=== PATIENT | male | born 1940 | race Caucasian/White ===

== ENCOUNTER 2020-09-06 17:49 | Emergency (ER) | payer OTHER, MEDICARE, SELFPAY ==
--- NOTE | ~2020-09-06 | XR_ITS ---
EXAMINATION: XR CHEST CLINICAL INFORMATION: Shortness of breath COMPARISON: None TECHNIQUE: Upright frontal portable view of the chest was obtained. FINDINGS: There is calcification of the aortic arch. The cardiac size is within normal limits. There is no mediastinal or hilar mass. The vasculature is normal. Lung volumes are low normal. There is no consolidation or major zone of atelectasis. The visualized pleural margins are within normal limits. There are some osteophytes in the spine. Chronic appearing widening of the right AC joint. Correlate with any previous surgery. XR/XR chest 1V IMPRESSION: No pneumonia or edema.
[2020-09-06 17:53] VITALS: BP 161/77; PULSE 76; RESP 18; TEMP 36.4; O2SAT 95; BMI 39.1
--- NOTE | 2020-09-06 18:41 | ED_ITS ---
HPI - Extremity Problem General Chief complaint: Eye Problems Stated complaint: hip pain Time Seen by Provider: 09/06/20 18:34 Source: patient Mode of arrival: ambulatory Limitations: no limitations History of Present Illness HPI Narrative: patient is status post thrombectomy right leg 2 month ago was doing fine no significant claudication complaining of pain in the right lower back radiating down the right leg with history of chronic low back pain problems no change in color of the right lower extremities no cyanosis no open wound patient able to ambulate well [place] patient also does have a sleep apnea and us ing CPAP in the night complaining of shortness of breath which is going on for a long time. Patient had full workup done a month ago in [place] where he lives and all the labs were within normal limits according to him. Related Data Previous Rx's Medication Instructions Recorded cyclobenzaprine 10 mg PO Q8H #20 tab 09/06/20 oxycodone 5 mg PO Q6H PRN #20 tab 09/06/20 Allergies Allergy/AdvReac Type Severity Reaction Status Date / [facility] Unknown RED Uncoded 09/06/20 17:52 Review of Systems Review of Systems: Yes all other systems are reviewed and are negative [facility] Past Medical History Medical History (Updated 09/06/20 @ 19:56 by Fermin Marie MD) Chronic back pain Coronary artery disease Diabetes mellitus Diverticulitis Hypertension Peripheral vascular disease Sleep apnea Social History Social History Advance Directives: No Advance Directives Information Provided: Yes Physical Exam Vital Signs: Vital Signs: Last Vital Signs Temp 97.6 F 09/06/20 17:53 Pulse 77 09/06/20 19:07 Resp 16 09/06/20 19:07 BP 144/59 H 09/06/20 19:07 Pulse Ox 95 09/06/20 19:07 Body Mass Index 39.1 Const: General: no acute distress and well developed Orientation/consciousness: patient oriented x3 HENMT: Head: Yes normal to inspection Eyes: General: appearance normal, both eyes and all related structures Neck: Neck: Yes normal visual inspection and Yes full ROM Chest: Chest palpation & inspection: normal inspection of the chest Resp: Effort & Inspection: normal respiratory effort and able to speak in complete sentences Auscultation: clear to auscultation bilaterally, no crackles and no rales Cardio: Palpation: normal PMI Rate: regular rate Rhythm: regular rhythm Heart sounds: S1 normal heart sound present and S2 normal heart sound present Peripheral pulses: Peripheral pulses 2+ throughout GI: Inspection: Yes normal to inspection Palpation (GI): Soft to palpation : General: Yes Bimanual renal exam normal bilaterally and Yes no CVA tenderness Back/Spine/Pelvis: Back: no CVA tenderness Thoracic/Lumbar Spine: thoracic and lumbar spine normal to inspection, straight leg raise negative bilaterally, pain with thoraco-lumbar ROM, paraspinal muscle tenderness, No thoracic spinal tenderness and No lumbar spinal tenderness Neuro: General: patient oriented x3 and Normal light touch and pain sensation Gait exam (Neuro): Antalgic gait present Extrem: Other: good peripheral pulses in right leg General: Yes normal to inspection, Yes full ROM and Yes capillary refill normal Right lower extremity: normal to inspection, full ROM and normal capillary refill Discharge Plan Discharge Clinical Impression: Low back pain radiating down leg Patient Disposition: Home, Self-Care Instructions: Back Pain (ED) Additional Instructions: rest at home take pain medication and muscle relaxant as prescribed report to the ER if lower extremity turns blue or cold Prescriptions: New cyclobenzaprine 10 mg tablet 10 mg PO Q8H Qty: 20 RF: 0 oxycodone 5 mg tablet 5 mg PO Q6H PRN (Reason: Pain, Severe) Qty: 20 RF: 0 Interventions: ED Discharge Assessment Last Done: 09/06/20 20:18 Discharge Date/Time: 09/06/20 20:18
[2020-09-06 19:07] VITALS: BP 144/59; PULSE 77; RESP 16; O2SAT 95
--- NOTE | 2020-09-06 19:11 | PC.NURSE ---
pt states he not here for any eye problem. pt is here for right upper leg pain. with a hx of blood clots.
[2020-09-06] MEDS: Cyclobenzaprine HCl 10 MG TABLET PO (19:15)
[2020-09-06] MEDS: oxyCODONE HCl Immed Release 5 MG TABLET 10 MG PO (19:16)
== END 2020-09-06 20:18 | disposition home or self-care (01) ==
PROVIDERS: Emergency Provider Internal Medicine
DX: M54.5 Low back pain (principal); I10 Essential (primary) hypertension; I25.10 Atherosclerotic heart disease of native coronary artery without angina pectoris; E11.9 Type 2 diabetes mellitus without complications
CPT/HCPCS: 71045; 99283; 99284

== ENCOUNTER 2021-08-27 08:29 | Emergency (ER) | payer MEDICARE, SELFPAY ==
--- NOTE | ~2021-08-27 | NM_ITS ---
EXAMINATION: PULMONARY PERFUSION STUDY CLINICAL INFORMATION: Shortness of breath. COMPARISON: No previous lung scan is available for comparison. Radiographs of the chest dated 08/27/2021, the same date as this lung scan, are available for comparison. TECHNIQUE: Following the intravenous administration of 4.0 mCi Tc-99m MAA an 8-view perfusion study was performed using a dual detector gamma scintillation camera. No ventilation images were obtained. FINDINGS: Perfusion images: No segmental perfusion defects are present. Nonsegmental perfusion abnormalities are present in the right lower lobe, and there is some elevation of the right hemidiaphragm compared to the left. No significant perfusion abnormalities are present in the left lung. NM/NM pul perfusion IMPRESSION: Low probability of pulmonary embolism. Nonsegmental perfusion abnormalities are present in the right lower lobe, and this scan appearance in the setting of a high clinical suspicion carries a 15-20% probability of pulmonary embolism.
--- NOTE | ~2021-08-27 | XR_ITS ---
EXAMINATION: XR CHEST CLINICAL INFORMATION: Shortness of breath COMPARISON: Chest radiograph 09/06/2020 TECHNIQUE: 2 views of the chest were obtained. FINDINGS: No significant abnormality is noted involving the heart, lungs, mediastinum, bony thorax or soft tissues. Again noted is probable surgical resection of the distal right clavicle. XR/XR chest 2V IMPRESSION: No acute intrathoracic disease
--- NOTE | ~2021-08-27 | US_ITS ---
EXAMINATION: US VENOUS ULTRASOUND WITH DOPPLER LOWER EXTREMITY, BILATERAL CLINICAL INFORMATION: Bilateral lower extremity edema COMPARISON: None TECHNIQUE: Ultrasound of the deep veins is performed from the hip to the calf with compression sonography and color and pulse Doppler assessment. Spectral analysis with color-flow imaging is performed. FINDINGS: RIGHT: There is normal venous compression and respiratory variation and augmented flow. The visualized common femoral vein, superficial femoral vein, profunda femoral vein, popliteal vein, and the trifurcation region shows no evidence of deep venous thrombosis. Secondary to the edema, the peroneal veins are not well seen There is no significant popliteal fossa cyst. Calf edema is present LEFT: There is normal venous compression and respiratory variation and augmented flow. The visualized common femoral vein, superficial femoral vein, profunda femoral vein, popliteal vein, and the trifurcation region shows no evidence of deep venous thrombosis. Secondary to the edema, the peroneal veins are not well seen. There is no significant popliteal fossa cyst. Calf edema is present. If the patient's symptoms persist, followup ultrasound in 5 days 7 days might be of value to exclude proximal propagation from a non-visualized calf vein. US/US venous duplex LE BI IMPRESSION: No DVT demonstrated in either lower extremity.
[2021-08-27 08:43] VITALS: BP 157/69; PULSE 70; RESP 20; TEMP 36.9; O2SAT 97; BMI 40.8
--- NOTE | 2021-08-27 08:48 | ECG_ITS ---
Test Reason : edema Blood Pressure : / mmHG Vent. Rate : 068 BPM Atrial Rate : 068 BPM P-R Int : 218 ms QRS Dur : 098 ms QT Int : 402 ms P-R-T Axes : 046 052 052 degrees QTc Int : 427 ms Sinus rhythm with sinus arrhythmia with 1st degree A-V block Otherwise normal ECG When compared with ECG of 19-AUG-2016 19:51, Premature supraventricular complexes are no longer Present Referred By: Chayito Pringle Electronically Signed By:TIM IYER MD
--- NOTE | 2021-08-27 08:48 | ED.GENADULT ---
HPI - General Adult General Chief complaint: Extremity Problem Stated complaint: swollen legs , fell on knees Time Seen by Provider: 08/27/21 08:48 Source: patient Mode of arrival: ambulatory Limitations: no limitations History of Present Illness HPI narrative: Patient is a 80 year old male presenting to the emergency department today with lower leg swelling. Patient states that he tripped up some stairs a week ago and ever since he has had bilateral lower leg swelling and intermittent SOB. Patient states that he lives in [place] [employer] and is only here to visit his children. Patient denies any dizziness, lightheadedness, abdominal pain, nausea, vomiting, fever, chills, blurry vision, double vision, loss of vision, chest pain, back pain, night sweats, pain with urination, increased urinary frequency, increased urinary urgency, blood in his urine or stool, syncope or a near syncopal episode, recent trauma or falls, bowel incontinence, bladder incontinence, bowel retention, bladder retention, or any other complaints at this time. Onset (ago): week(s) Location: left, right and lower extremity Radiation: non-radiation Severity: mild Severity scale (1-10): 3 Relieving factors: none Exacerbating factors: none Associated symptoms: shortness of breath (intermittent) Treatments prior to arrival: none Related Data Previous Rx's Medication Instructions Recorded cyclobenzaprine 10 mg tablet 10 mg PO Q8H #20 tabs 09/06/20 oxycodone 5 mg tablet 5 mg PO Q6H PRN Pain, Severe #20 09/06/20 tabs rafa.stocking,thigh,reg,med #2 ea 08/27/21 Allergies Allergy/AdvReac Type Severity Reaction Status Date / Time From [facility] Allergy Unknown RED Uncoded 09/06/20 17:52 Review of Systems Constitutional: Constitutional: Reports no additional constitutional complaints, Denies chills, Denies fever(s) and Denies night sweats Eyes: Eyes: Reports no additional eye complaints, Denies blurry vision, Denies change in vision, Denies diplopia, Denies eye discharge, Denies loss of vision and Denies eye pain ENT: Denies dizziness Cardiovascular: Cardiovascular: Reports no additional cardiovascular complaints, Denies chest pain, Reports leg edema, Denies lightheadedness, Denies Loss of Consciousness and Reports dyspnea (intermittent) Respiratory: Respiratory: Reports no additional respiratory complaints and Reports dyspnea (intermittent) Gastrointestinal: Gastrointestinal: Reports no additional gastrointestinal complaints, Denies abdominal pain, Denies melena, Denies hematochezia, Denies change in bowel habits and Denies change in stool character Genitourinary: Genitourinary: Reports no additional male genitourinary complaints, Denies hematuria, Denies oliguria, Denies difficulty urinating, Denies dysuria, Denies urinary frequency, Denies urinary hesitancy, Denies urinary incontinence and Denies urinary urgency Musculoskeletal: Musculoskeletal: Reports no additional musculoskeletal complaints, Denies numbness and Denies tingling Neurologic: Denies dizziness, Denies loss of vision, Denies numbness and Denies tingling Psychiatric: Psychiatric: Reports no additional psychiatric complaints Endocrine: Endocrine: Reports no additional endocrine complaints Hematologic/Lymphatic: Hematologic/Lymphatic: Reports no additional hematologic/lymphatic complaints Allergic/Immunologic: Allergic/Immunologic: Reports no additional allergic/immunologic complaints PMFSH Past Medical History Attestation statement: The following information was validated with the patient. Source: old records reviewed Medical History Chronic back pain Coronary artery disease Diabetes mellitus Diverticulitis Hypertension Peripheral vascular disease Sleep apnea Social History Social History Patient Tobacco Use Status: Former Tobacco user Smoked in Last 30 Days: No Use of substances other than those prescribed or required for medical reasons: No Advance Directives: No Advance Directives Information Provided: Yes Physical Exam ED Vital Signs: Vital Signs - 24 hr 08/27/21 08:43 08/27/21 11:18 Temperature 98.4 F 97.7 F Pulse Rate 70 66 Respiratory Rate 20 18 Blood Pressure 157/69 H 122/46 L Pulse Oximetry 97 96 Oxygen Delivery Method Room Air Room Air BMI result Body Mass Index 40.8 Const General: cooperative, no acute distress, alert and awake Nutritional Appearance: well nourished Orientation/consciousness: patient oriented x3 Limitations: no limitations HENMT Head: Yes normal to inspection and Yes atraumatic Ears: hearing grossly normal bilaterally and external ears normal General nose exam: Normal external nose present, no nasal discharge noted and no epistaxis Face and sinus: Yes normal facial exam, No abrasion and No laceration Mouth: Normal oral and palatal mucosa present, no drooling and no muffled voice Eyes General: appearance normal, both eyes and all related structures Periorbital: periorbital findings normal Eyelids: Yes eyelids normal Conjunctivae: conjunctivae normal Pupils: Equal, round and reactive pupils present EOM: EOMs intact bilaterally Neck Neck: Yes normal visual inspection, Yes full ROM and Yes no lymphadenopathy Chest Chest palpation & inspection: normal inspection of the chest Resp Effort & Inspection: normal respiratory effort and able to speak in complete sentences Auscultation: clear to auscultation bilaterally Cardio Rate: regular rate Rhythm: regular rhythm GI Inspection: Yes normal to inspection Neuro General: patient oriented x3 and moves all extremities Cranial nerves: Yes Equal, round and reactive pupils present Cognition (Neuro): normal cognition Motor exam (neuro): 5/5 motor strength present throughout Sensory Exam: Normal double simultaneous stimulation for sensation Coordination: [id number] test normal Extrem General: Yes normal to inspection, Yes full ROM and Yes capillary refill normal Right lower extremity: edema Left lower extremity: edema Psych Appearance: grossly normal Mental Status: mental status grossly normal Affect: normal affect Attitude: cooperative Thought process: Normal thought process present Thought content: Normal thought content present Insight: Good insight present (Psych) Medical Decision Making MDM Narrative Medical decision making narrative: Patient is a 80 year old male presenting to the emergency department today with bilateral lower leg edema. Patient's physical exam showed bilateral lower leg 2+ edema but was otherwise unremarkable. Patient's blood work showed an elevated d dimer and a low magnesium. Patient's mag was replaced via 2g of IV mag. Patient's EKG was unremarkable. Patient's chest x-ray showed no acute process. Patient's VQ scan and bilateral lower leg US showed no acute process. I explained my physical exam findings as well as all test results to the patient and the patient's . I answered all questions asked by the patient and the patient's . I stressed the importance of the patient taking his medication as prescribed. I stressed the importance of the patient following up with his primary care provider. I stressed the importance of the patient returning to the emergency department immediately if his symptoms were to worsen or if he were to develop any dizziness, shortness of breath, difficulty breathing, chest pain, blurry vision, loss of vision, nausea, vomiting, abdominal pain, fever, chills, back pain, or any other complaints. Patient and the patient's verbalized agreement and understanding with this treatment plan and discharge. Differential Diagnosis Differential Diagnosis: Dependent edema, hypomagnesemia Medical Records Medical records reviewed: Yes I reviewed the patient's medical records. Lab Data Lab results reviewed: Yes I reviewed the patient's lab results. Result diagrams: 08/27/21 09:20 08/27/21 09:20 Labs: Lab Results 08/27/21 08/27/21 08/27/21 Range/Units 09:12 09:12 09:20 WBC 6.9 (4.8-10.8) X10*3/uL RBC 4.07 L (4.60-5.80) X10*6/uL Hgb 12.5 L (14.0-18.0) g/dl Hct 38.4 L (42.0-52.0) % MCV 94.3 (80.0-98.0) fL MCH 30.7 (27.0-33.0) pg MCHC 32.6 (31.0-36.0) g/dl RDW 12.6 (11.0-16.0) % Plt Count 245 (160-400) X10*3/uL MPV 9.7 (9.4-12.4) fL Immature Gran % (Auto) 1.2 H (0.0-0.4) % Neut % (Auto) 63.7 (45-73) % Lymph % (Auto) 23.0 (20-40) % [place] % (Auto) 9.5 (2-11) % Eos % (Auto) 1.9 (0-4) % Baso % (Auto) 0.7 (0-2) % Lymph # (Auto) 1.6 (1.2-4.9) X10*3/uL [place] # (Auto) 0.7 (0.1-1.2) X10*3/uL Eos # (Auto) 0.1 (0.0-0.4) X10*3/uL Baso # (Auto) 0.1 (0.0-0.2) X10*3/uL Abs Immat Gran (auto) 0.08 H (0.00-0.03) X10*3/uL Absolute Neuts (auto) 4.4 (2.0-8.3) x10*3/uL Absolute Nucleated RBC 0.020 H (0.0-0.012) X10*3/uL Nucleated RBC % (auto) 0.3 H (0.0-0.2) /100WBC D-Dimer High Sensitivty NG/ML VBG pH (7.32-7.43) VBG pCO2 mmHg VBG pO2 mmHg VBG HCO3 (22-26) mmol/L VBG O2 Saturation % VBG Base Excess mmol/L Sodium (135-145) mmol/L Potassium (3.3-5.1) mmol/L Chloride (96-108) mmol/L Carbon Dioxide (22-29) mmol/L Anion Gap (12-20) BUN (9-16) mg/dL Creatinine (0.5-1.4) mg/dL Estim Creat Clear Calc Estimated GFR Random Glucose (60-115) mg/dL Lactic Acid (0.5-2.0) mmol/L Lactic Acid F/U @ 2Hr (0.5-2.0) mmol/L Calcium (8.4-10.2) mg/dL Magnesium (1.6-2.6) mg/dL Total Bilirubin (0.0-1.0) mg/dL AST (5-37) U/L ALT (0-40) U/L Alkaline Phosphatase (39-117) U/L Troponin I High Sens (<3.5-35.0) ng/L B-Natriuretic Peptide (<100) pg/mL Total Protein (6.5-8.0) g/dL Albumin (3.5-5.0) g/dL COVID-19 (TABITHA) Negative (Negative) COVID-19 Clin Com See Note Influenza Type A (NELY) Negative (Negative) Influenza Type B (NELY) Negative (Negative) Influenza A & B Note See Note 08/27/21 08/27/21 08/27/21 Range/Units 09:20 09:20 09:20 WBC (4.8-10.8) X10*3/uL RBC (4.60-5.80) X10*6/uL Hgb (14.0-18.0) g/dl Hct (42.0-52.0) % MCV (80.0-98.0) fL MCH (27.0-33.0) pg MCHC (31.0-36.0) g/dl RDW (11.0-16.0) % Plt Count (160-400) X10*3/uL MPV (9.4-12.4) fL Immature Gran % (Auto) (0.0-0.4) % Neut % (Auto) (45-73) % Lymph % (Auto) (20-40) % [place] % (Auto) (2-11) % Eos % (Auto) (0-4) % Baso % (Auto) (0-2) % Lymph # (Auto) (1.2-4.9) X10*3/uL [place] # (Auto) (0.1-1.2) X10*3/uL Eos # (Auto) (0.0-0.4) X10*3/uL Baso # (Auto) (0.0-0.2) X10*3/uL Abs Immat Gran (auto) (0.00-0.03) X10*3/uL Absolute Neuts (auto) (2.0-8.3) x10*3/uL Absolute Nucleated RBC (0.0-0.012) X10*3/uL Nucleated RBC % (auto) (0.0-0.2) /100WBC D-Dimer High Sensitivty 1549 NG/ML VBG pH (7.32-7.43) VBG pCO2 mmHg VBG pO2 mmHg VBG HCO3 (22-26) mmol/L VBG O2 Saturation % VBG Base Excess mmol/L Sodium 138 (135-145) mmol/L Potassium 4.2 (3.3-5.1) mmol/L Chloride 102 (96-108) mmol/L Carbon Dioxide 26 (22-29) mmol/L Anion Gap 14 (12-20) BUN 22 H (9-16) mg/dL Creatinine 1.31 (0.5-1.4) mg/dL Estim Creat Clear Calc 55.3 Estimated GFR 53 Random Glucose 209 H (60-115) mg/dL Lactic Acid (0.5-2.0) mmol/L Lactic Acid F/U @ 2Hr (0.5-2.0) mmol/L Calcium 9.0 (8.4-10.2) mg/dL Magnesium 1.3 L* (1.6-2.6) mg/dL Total Bilirubin 0.4 (0.0-1.0) mg/dL AST 15 (5-37) U/L ALT 18 (0-40) U/L Alkaline Phosphatase 33 L (39-117) U/L Troponin I High Sens 7.4 (<3.5-35.0) ng/L B-Natriuretic Peptide 12 (<100) pg/mL Total Protein 6.3 L (6.5-8.0) g/dL Albumin 3.6 (3.5-5.0) g/dL COVID-19 (TABITHA) (Negative) COVID-19 Clin Com Influenza Type A (NELY) (Negative) Influenza Type B (NELY) (Negative) Influenza A & B Note 08/27/21 08/27/21 08/27/21 Range/Units 09:20 09:25 11:54 WBC (4.8-10.8) X10*3/uL RBC (4.60-5.80) X10*6/uL Hgb (14.0-18.0) g/dl Hct (42.0-52.0) % MCV (80.0-98.0) fL MCH (27.0-33.0) pg MCHC (31.0-36.0) g/dl RDW (11.0-16.0) % Plt Count (160-400) X10*3/uL MPV (9.4-12.4) fL Immature Gran % (Auto) (0.0-0.4) % Neut % (Auto) (45-73) % Lymph % (Auto) (20-40) % [place] % (Auto) (2-11) % Eos % (Auto) (0-4) % Baso % (Auto) (0-2) % Lymph # (Auto) (1.2-4.9) X10*3/uL [place] # (Auto) (0.1-1.2) X10*3/uL Eos # (Auto) (0.0-0.4) X10*3/uL Baso # (Auto) (0.0-0.2) X10*3/uL Abs Immat Gran (auto) (0.00-0.03) X10*3/uL Absolute Neuts (auto) (2.0-8.3) x10*3/uL Absolute Nucleated RBC (0.0-0.012) X10*3/uL Nucleated RBC % (auto) (0.0-0.2) /100WBC D-Dimer High Sensitivty NG/ML VBG pH 7.47 H (7.32-7.43) VBG pCO2 34 mmHg VBG pO2 70 mmHg VBG HCO3 25 (22-26) mmol/L VBG O2 Saturation 93.0 % VBG Base Excess 2.2 mmol/L Sodium (135-145) mmol/L Potassium (3.3-5.1) mmol/L Chloride (96-108) mmol/L Carbon Dioxide (22-29) mmol/L Anion Gap (12-20) BUN (9-16) mg/dL Creatinine (0.5-1.4) mg/dL Estim Creat Clear Calc Estimated GFR Random Glucose (60-115) mg/dL Lactic Acid 2.1 H* (0.5-2.0) mmol/L Lactic Acid F/U @ 2Hr 1.8 (0.5-2.0) mmol/L Calcium (8.4-10.2) mg/dL Magnesium (1.6-2.6) mg/dL Total Bilirubin (0.0-1.0) mg/dL AST (5-37) U/L ALT (0-40) U/L Alkaline Phosphatase (39-117) U/L Troponin I High Sens (<3.5-35.0) ng/L B-Natriuretic Peptide (<100) pg/mL Total Protein (6.5-8.0) g/dL Albumin (3.5-5.0) g/dL COVID-19 (TABITHA) (Negative) COVID-19 Clin Com Influenza Type A (NELY) (Negative) Influenza Type B (NELY) (Negative) Influenza A & B Note Imaging Data Chest x-ray: Attestation: I personally reviewed and interpreted this imaging study as follows: My impression: No acute process. Radiologist's impression: EXAMINATION: XR CHEST CLINICAL INFORMATION: Shortness of breath COMPARISON: Chest radiograph 09/06/2020 TECHNIQUE: 2 views of the chest were obtained. FINDINGS: No significant abnormality is noted involving the heart, lungs, mediastinum, bony thorax or soft tissues. Again noted is probable surgical resection of the distal right clavicle. XR/XR chest 2V IMPRESSION: No acute intrathoracic disease Dictated By: Dominik Grimes MD Signed By: Electronically signed by Dominik Grimes MD 08/27/21 1020 Pulmonary Perfusion Imaging: Attestation: I personally reviewed and interpreted this imaging study as follows: My impression: No PE. Radiologist's impression: EXAMINATION: PULMONARY PERFUSION STUDY CLINICAL INFORMATION: Shortness of breath. COMPARISON: No previous lung scan is available for comparison. Radiographs of the chest dated 08/27/2021, the same date as this lung scan, are available for comparison. TECHNIQUE: Following the intravenous administration of 4.0 mCi Tc-99m MAA an 8-view perfusion study was performed using a dual detector gamma scintillation camera. No ventilation images were obtained. FINDINGS: Perfusion images: No segmental perfusion defects are present. Nonsegmental perfusion abnormalities are present in the right lower lobe, and there is some elevation of the right hemidiaphragm compared to the left. No significant perfusion abnormalities are present in the left lung. NM/NM pul perfusion IMPRESSION: Low probability of pulmonary embolism. Nonsegmental perfusion abnormalities are present in the right lower lobe, and this scan appearance in the setting of a high clinical suspicion carries a 15-20% probability of pulmonary embolism. Dictated By: Yung Garner MD Signed By: Electronically signed by Yung Garner MD 08/27/21 1322 Venous US: Attestation: I personally reviewed and interpreted this imaging study as follows: My impression: No DVT. Radiologist's impression: EXAMINATION:? US VENOUS ULTRASOUND WITH DOPPLER LOWER EXTREMITY, BILATERAL CLINICAL INFORMATION:? Bilateral lower extremity edema COMPARISON:? None TECHNIQUE: Ultrasound of the deep veins is performed from the hip to the calf with compression sonography and color and pulse Doppler assessment. Spectral analysis with color-flow imaging is performed. FINDINGS: RIGHT: There is normal venous compression and respiratory variation and augmented flow. The visualized common femoral vein, superficial femoral vein, profunda femoral vein, popliteal vein, and the trifurcation region shows no evidence of deep venous thrombosis. Secondary to the edema, the peroneal veins are not well seen There is no significant popliteal fossa cyst. Calf edema is present LEFT: There is normal venous compression and respiratory variation and augmented flow. The visualized common femoral vein, superficial femoral vein, profunda femoral vein, popliteal vein, and the trifurcation region shows no evidence of deep venous thrombosis. Secondary to the edema, the peroneal veins are not well seen. There is no significant popliteal fossa cyst. Calf edema is present. If the patient's symptoms persist, followup ultrasound in 5 days 7 days might be of value to exclude proximal propagation from a non-visualized calf vein. US/US venous duplex LE BI IMPRESSION: No DVT demonstrated in either lower extremity. Dictated By: Dominik Grimes MD Signed By: Electronically signed by Dominik Grimes MD 08/27/21 1137 ECG Data Attestation: I personally reviewed and interpreted this ECG as follows: Prior ECG tracings: available for review Interpretation: Vent. Rate: 068 BPM ? ? Atrial Rate: 068 BPM P-R Int: 218 ms? QRS Dur: 098 ms QT Int: 402 ms ? ? ? P-R-T Axes: 046 052 052 degrees QTc Int: 427 ms ? Sinus rhythm with sinus arrhythmia with 1st degree A-V block Otherwise normal ECG When compared with ECG of 19-AUG-2016 19:51, Premature supraventricular complexes are no longer Present ? Referred By: Chayito Pringle ? Electronically Signed By:KARL IYER MD Dictated By: Karl Iyer MD Signed By: Electronically signed by Karl Iyer MD 08/27/21 1527 Discharge Plan Discharge Clinical Impression: Lower extremity edema, Hypomagnesemia Patient Disposition: Home, Self-Care Instructions: Leg Edema (ED), Hypomagnesemia (ED) Additional Instructions: Begin taking a total of 800mg of Magnesium, over the counter, per day. Use the compression stockings daily. Replace the compression stockings after 6 months of continual use. Follow up with your primary care provider. Return to the emergency department immediately if your symptoms worsen or if you develop any dizziness, shortness of breath, difficulty breathing, chest pain, blurry vision, loss of vision, nausea, vomiting, abdominal pain, fever, chills, back pain, or any other complaints. Prescriptions: New (DME) rafa.stocking,thigh,reg,med Misc See Rx Instructions .Route Qty: 2 0RF Rx Instructions: As directed No Action cyclobenzaprine 10 mg tablet 10 mg PO Q8H Qty: 20 0RF oxycodone 5 mg tablet 5 mg PO Q6H PRN (Reason: Pain, Severe) Qty: 20 0RF Referrals: Physician,Nonstaff [Primary Care Provider] - (Follow up with your primary care provider once you return to [place]. ) Interventions: ED Discharge Assessment Last Done: 08/27/21 14:00 Discharge Date/Time: 08/27/21 14:00 Print Language: [place]
[2021-08-27 09:25] LABS: MANUAL DIFF FLAG NO
[2021-08-27 09:27] LABS: Venous Blood Gas Refer to POC result
[2021-08-27 09:30] LABS: Basophils Absolute Auto 0.1 X10*3/uL (0.0-0.2); Basophils Percent Auto 0.7 % (0-2); Eosinophils Absolute Auto 0.1 X10*3/uL (0.0-0.4); Eosinophils Percent Auto 1.9 % (0-4); Hematocrit 38.4 % (42.0-52.0); Hemoglobin 12.5 g/dl (14.0-18.0); Imm Gran Abs Auto 0.08 X10*3/uL (0.00-0.03); Imm Gran Pct Auto 1.2 % (0.0-0.4); Lymphocytes Absolute Auto 1.6 X10*3/uL (1.2-4.9); Mean Corpuscular HGB Conc 32.6 g/dl (31.0-36.0); Mean Corpuscular Hemoglobin 30.7 pg (27.0-33.0); Mean Corpuscular Volume 94.3 fL (80.0-98.0); Mean Platelet Volume 9.7 fL (9.4-12.4); Monocytes Absolute Auto 0.7 X10*3/uL (0.1-1.2); Monocytes Percent Auto 9.5 % (2-11); NRBC Pct Auto 0.3 /100WBC (0.0-0.2); Neutrophils Absolute Auto 4.4 x10*3/uL (2.0-8.3); Neutrophils Percent Auto 63.7 % (45-73); Platelet Count 245 X10*3/uL (160-400); Red Blood Count 4.07 X10*6/uL (4.60-5.80); Red Cell Distribution Width 12.6 % (11.0-16.0); White Blood Count 6.9 X10*3/uL (4.8-10.8)
[2021-08-27 09:31] LABS: VBG Base Excess 2.2 mmol/L; VBG HCO3 25 mmol/L (22-26); VBG pCO2 34 mmHg; VBG pH 7.47 (7.32-7.43); VBG pO2 70 mmHg
[2021-08-27 09:39] LABS: D Dimer High Sensitivity 1549 NG/ML
[2021-08-27 09:46] LABS: COVID-19 Test Negative (Negative); IDNOW Serial# 16C4AD1C
[2021-08-27 09:47] LABS: Influenza A Negative (Negative); Influenza B2 Negative (Negative)
[2021-08-27 09:50] LABS: B Type Natriuretic Peptide 12 pg/mL (<100); Troponin-I High Sensitivity 7.4 ng/L (<3.5-35.0)
[2021-08-27 10:05] LABS: Alanine Aminotransferase 18 U/L (0-40); Albumin Level 3.6 g/dL (3.5-5.0); Alkaline Phosphatase 33 U/L (39-117); Anion Gap 14 (12-20); Aspartate Amino Transferase 15 U/L (5-37); Bilirubin Total 0.4 mg/dL (0.0-1.0); Blood Urea Nitrogen 22 mg/dL (9-16); Carbon Dioxide 26 mmol/L (22-29); Chloride 102 mmol/L (96-108); Creatinine Clr Calc Pharmacy 55.3; Estimated Glomerular Filt Rate 53; Glucose Random 209 mg/dL (60-115); Lactic Acid 2.1 mmol/L (0.5-2.0); Magnesium 1.3 mg/dL (1.6-2.6); Potassium 4.2 mmol/L (3.3-5.1); Sodium 138 mmol/L (135-145); Total Protein 6.3 g/dL (6.5-8.0)
[2021-08-27] MEDS: Magnesium Sulfate/H2O 2 GM/50 ML PIGGYBACK IV (10:26)
[2021-08-27 11:18] VITALS: BP 122/46; PULSE 66; RESP 18; TEMP 36.5; O2SAT 96
[2021-08-27 11:25] LABS: Reflex Lactate? Lactic Acid Added
[2021-08-27 12:12] LABS: ~Lactic Acid-LAB USE ONLY 1.8 mmol/L (0.5-2.0)
== END 2021-08-27 14:00 | disposition home or self-care (01) ==
PROVIDERS: Physician Assistant Medical; Emergency Provider Student in an Organized Health Care Education/Training Program
DX: R60.0 Localized edema (principal); E83.42 Hypomagnesemia; R06.02 Shortness of breath; R79.1 Abnormal coagulation profile; I10 Essential (primary) hypertension; E11.9 Type 2 diabetes mellitus without complications; I73.9 Peripheral vascular disease, unspecified; I25.10 Atherosclerotic heart disease of native coronary artery without angina pectoris; Z20.822 Contact with and (suspected) exposure to COVID-19
CPT/HCPCS: 71046; 78580; 80053; 82803; 83605; 83735; 83880; 84484; 85025; 85379; 87040; 87077; 87205; 87502; 87635; 93005; 93970; 96365; 96366; 99284; A9540; J3475

== ENCOUNTER 2021-09-02 13:04 | Emergency (ER) | payer MEDICARE, OTHER, SELFPAY ==
--- NOTE | ~2021-09-02 | XR_ITS ---
EXAMINATION: XR CHEST CLINICAL INFORMATION: Epigastric/upper abdominal pain. COMPARISON: Chest 08/27/2021 TECHNIQUE: Frontal view of the chest was obtained. FINDINGS: The lungs are well-expanded and clear. The heart size and pulmonary vascularity is normal. There is electronic device overlying the left mid chest. XR/XR chest 1V IMPRESSION: Unremarkable chest exam.
[2021-09-02 14:02] VITALS: BP 157/74; PULSE 74; RESP 20; TEMP 36.4; O2SAT 95; BMI 39.1
--- NOTE | 2021-09-02 14:12 | ECG_ITS ---
Test Reason : epigastric/abdomina pain Blood Pressure : / mmHG Vent. Rate : 071 BPM Atrial Rate : 071 BPM P-R Int : 198 ms QRS Dur : 098 ms QT Int : 396 ms P-R-T Axes : 027 033 056 degrees QTc Int : 430 ms Normal sinus rhythm Normal ECG When compared with ECG of 27-AUG-2021 09:24, No significant change was found Referred By: Generic ED Physician Electronically Signed By:MARICHUY BRISENO
[2021-09-02 14:30] LABS: MANUAL DIFF FLAG NO
[2021-09-02 14:31] LABS: Basophils Absolute Auto 0.1 X10*3/uL (0.0-0.2); Basophils Percent Auto 0.6 % (0-2); Eosinophils Absolute Auto 0.1 X10*3/uL (0.0-0.4); Eosinophils Percent Auto 0.7 % (0-4); Hematocrit 38.4 % (42.0-52.0); Hemoglobin 12.9 g/dl (14.0-18.0); Imm Gran Abs Auto 0.06 X10*3/uL (0.00-0.03); Imm Gran Pct Auto 0.7 % (0.0-0.4); Lymphocytes Absolute Auto 1.8 X10*3/uL (1.2-4.9); Lymphocytes Percent Auto 20.6 % (20-40); Mean Corpuscular HGB Conc 33.6 g/dl (31.0-36.0); Mean Corpuscular Hemoglobin 30.9 pg (27.0-33.0); Mean Corpuscular Volume 91.9 fL (80.0-98.0); Mean Platelet Volume 9.6 fL (9.4-12.4); Monocytes Absolute Auto 0.8 X10*3/uL (0.1-1.2); Monocytes Percent Auto 9.7 % (2-11); Neutrophils Absolute Auto 5.9 x10*3/uL (2.0-8.3); Neutrophils Percent Auto 67.7 % (45-73); Platelet Count 255 X10*3/uL (160-400); Red Blood Count 4.18 X10*6/uL (4.60-5.80); Red Cell Distribution Width 12.6 % (11.0-16.0); White Blood Count 8.7 X10*3/uL (4.8-10.8)
[2021-09-02 14:48] LABS: Anion Gap 14 (12-20); Blood Urea Nitrogen 19 mg/dL (9-16); Calcium 9.6 mg/dL (8.4-10.2); Carbon Dioxide 23 mmol/L (22-29); Chloride 101 mmol/L (96-108); Creatinine Clr Calc Pharmacy 49.5; Estimated Glomerular Filt Rate 48; Glucose Random 142 mg/dL (60-115); Potassium 4.1 mmol/L (3.3-5.1); Sodium 134 mmol/L (135-145)
[2021-09-02 14:53] LABS: Troponin-I High Sensitivity 5.6 ng/L (<3.5-35.0)
== END 2021-09-02 22:20 | disposition left against medical advice (07) ==
PROVIDERS: Emergency Provider Emergency Medicine
DX: R10.13 Epigastric pain (principal); K21.9 Gastro-esophageal reflux disease without esophagitis; T47.4X5A Adverse effect of other laxatives, initial encounter; Y92.9 Unspecified place or not applicable
CPT/HCPCS: 36415; 71045; 80048; 84484; 85025; 93005; 99282; 99283